=== PATIENT | female | born 1980 | race Two or more races ===

== ENCOUNTER 2017-02-11 12:15 | Emergency (ER) | payer MEDICAID ==
[~2017-02-11] VITALS: Ht 162.6 cm; Wt 56.7 kg
[2017-02-11 12:32] VITALS: BP 137/97
== END 2017-02-11 14:37 | disposition home or self-care (01) ==
LOC: ER 12:15
DX: K64.4 Residual hemorrhoidal skin tags (principal)

== ENCOUNTER 2020-10-20 11:35 | Emergency (ER) | payer SELFPAY ==
[~2020-10-20] VITALS: Ht 162.6 cm; Wt 54.4 kg
[2020-10-20 11:44] VITALS: BP 110/55
[2020-10-20] MEDS ORDERED: IBUPROFEN 100MG/5ML ORAL SUSP 100 MG/5 ML UD PO ONE (13:30)
== END 2020-10-20 14:37 | disposition home or self-care (01) ==
LOC: ER 11:37
DX: S93.401A Sprain of unspecified ligament of right ankle, initial encounter (principal); X50.1XXA Overexertion from prolonged static or awkward postures, initial encounter; Y93.89 Activity, other specified; Y92.89 Other specified places as the place of occurrence of the external cause; Y99.8 Other external cause status
CPT/HCPCS: 73630

== ENCOUNTER 2022-12-18 10:45 | Emergency (ER) | payer MEDICAID ==
[~2022-12-18] VITALS: Ht 162.6 cm; Wt 55.7 kg
[2022-12-18 11:32] VITALS: BP 134/80
[2022-12-18] MEDS: ACETAMINOPHEN 325 MG TAB PO ONE ×2 (12:34→12:37)
== END 2022-12-18 12:44 | disposition home or self-care (01) ==
LOC: ER 10:45
DX: S39.012A Strain of muscle, fascia and tendon of lower back, initial encounter (principal); S16.1XXA Strain of muscle, fascia and tendon at neck level, initial encounter; M51.36 Other intervertebral disc degeneration, lumbar region; X50.1XXA Overexertion from prolonged static or awkward postures, initial encounter; Y93.89 Activity, other specified; Y92.59 Other trade areas as the place of occurrence of the external cause; Y99.8 Other external cause status
CPT/HCPCS: 72100

== ENCOUNTER 2025-04-20 06:07 | Day surgery (SDC) | payer MEDICAID ==
[2025-04-17 14:44] LABS: Hematocrit 37.6 % (36.0-46.0); Hemoglobin 12.5 g/dL (12.2-16.2); Mean Corpuscular Hemoglobin 27.9 pg (28.0-32.0); Mean Corpuscular Volume 83.9 fL (80.0-100.0); Nucleated Red Blood Cells % 0.0 %
[2025-04-17 14:45] LABS: Urine Protein, UAD Negative (Negative)
[2025-04-17 14:58] LABS: INR 1.04 (0.9-1.15); Partial Thromboplastin Time 29.5 SEC (24.5-34.5); Prothrombin Time 11.0 sec (9.3-11.8)
[2025-04-17 15:21] LABS: Alanine Aminotransferase 12 U/L (7-40); Albumin 4.4 g/dL (3.2-4.8); Alkaline Phosphatase 50 U/L (46-116); Anion Gap 9 (5-15); BUN/Creatinine Ratio 15.4 (10.0-20.0); Bilirubin, Total 0.9 mg/dL (0.2-1.0); Blood Urea Nitrogen 12 mg/dL (9-23); Calcium 9.1 mg/dL (8.7-10.4); Carbon Dioxide 28 mmol/L (20-31); Chloride 104 mmol/L (98-107); Glucose 77 mg/dL (74-106); Potassium 3.6 mmol/L (3.5-5.1); Sodium 141 mmol/L (136-145); Total Protein 7.5 g/dL (5.7-8.2)
--- NOTE | 2025-04-17 22:30 | DVHHP ---
ADMIT DATE: 04/20/2025 CHIEF COMPLAINT: Misplaced IUD. HISTORY OF PRESENT ILLNESS: The patient is a 44-year-old 2 para 2-0-0-2 admitted for D and C, hysteroscopy, IUD removal. The patient has an IUD in place in uterus. String was not seen. Ultrasound reveals 9.6 x 6 x 4 cm uterus. IUD is in uterus. The patient was advised regarding removal, possibility of it being embedded, and failure to be able to remove it. All options discussed. The patient . She wishes to proceed with planned procedure. PAST MEDICAL HISTORY: None. PAST SURGICAL HISTORY: None. SOCIAL HISTORY: None. FAMILY HISTORY: None. 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 REVIEW OF SYSTEMS: Consistent with HPI. PHYSICAL EXAMINATION: VITAL SIGNS: Stable, afebrile. HEENT: Within normal limits. CARDIOVASCULAR: Regular rate and rhythm. LUNGS: Clear to auscultation. BREASTS: Symmetrical. No masses. ABDOMEN: Soft, nontender. PELVIC: External genitalia within normal limits. Vagina normal. Cervix grossly normal appearing. Uterus 10-week size. Adnexae nonpalpable. IUD not seen in the cervix. No string seen. EXTREMITIES: No clubbing, cyanosis, edema. IMPRESSION: Misplaced IUD. PLAN: D and C, hysteroscopy. Informed consent obtained. Risks and complications of surgery including infection, bleeding, perforation of uterus, risk of anesthesia, failure to remove the IUD discussed with the patient. Options reviewed. The patient fully understands. She wishes to proceed. We will plan to proceed. DO CHARLOTTE Hawk/ELIAZAR/JT TID: [id number] RECEIPT: [id number]
[~2025-04-20] VITALS: Ht 162.6 cm; Wt 54.4 kg
[2025-04-20] MEDS ORDERED: ceFAZolin 2 GM/D5W50ml 50 ML IV ONE (06:11)
[2025-04-20] MEDS ORDERED: PROPOFOL 10 MG/ML 20 ML IV ONE (06:50)
[2025-04-20] MEDS ORDERED: MEPERIDINE HCL (25 MG/ML) 1ML VIAL ONE (06:50)
[2025-04-20] MEDS ORDERED: ONDANSETRON HCL 4 MG/2 ML VIAL ONE (06:50)
[2025-04-20] MEDS ORDERED: fentaNYL CITRATE 100 MCG/2 ML VL ONE (06:50)
[2025-04-20] MEDS ORDERED: IBUP-1456 PO (07:15)
[2025-04-20] MEDS ORDERED: HYDR-4072 PO (07:15)
[2025-04-20] MEDS ORDERED: ONDANSETRON HCL 4 MG/2 ML VIAL IV PRN ×2 (07:15→08:00)
[2025-04-20] MEDS ORDERED: LACTATED RINGER'S 1,000 ML IV SCH (07:15)
[2025-04-20] MEDS ORDERED: ZOFR4T PO (07:15)
[2025-04-20 07:46] VITALS: PULSE 70; RESP 13; TEMP 97.3; O2SAT 96
[2025-04-20 08:00] VITALS: PULSE 70; RESP 13; O2SAT 96
[2025-04-20] MEDS ORDERED: ACETAMINOPHEN IV 1000 MG/100ML (10MG/ML) IV PRN (08:00)
[2025-04-20] MEDS ORDERED: HYDROmorphone HCL 2 MG/ML VL/or syr IV PRN (08:00)
[2025-04-20] MEDS ORDERED: MEPERIDINE HCL (25 MG/ML) 1ML VIAL IV PRN (08:00)
[2025-04-20] MEDS ORDERED: METOCLOPRAMIDE HCL 5MG/ml INJ 2ml VIAL IV PRN (08:00)
[2025-04-20 08:45] VITALS: BP 111/74; PULSE 64; RESP 14
--- NOTE | 2025-04-20 13:34 | DVHOP2 ---
Operative Report DATE OF OPERATION: 04/20/25 PREOPERATIVE DIAGNOSES: misplaced iud POSTOPERATIVE DIAGNOSES: same SURGEON: Charley Valencia D.O. ANESTHESIOLOGIST: yonas TYPE OF ANESTHESIA : General. CONSENT: The patient was informed of the risks and benefits of the procedure. The patient was informed of the risks and benefits of the procedure. These include but are not limited to , complications of anesthesia, postoperative infection, incomplete relief of symptoms, recurrence of symptoms, damage to blood vessels, nerves and tendons, deep venous thrombosis, pulmonary embolism and possible need for repeat surgery in the future. FINDINGS: ext gent wnl,vag nl,cx nl,uterus 9wks size. Cervix, Bulbous, [place], and urethrovesical glands appeared normal. SPECIMEN-iud COMPLICATIONS: None. BLOOD PRODUCTS USED: None. PROCEDURES: Hysteroscopy and dilatation and curettage.iud removal PROCEDURE IN DETAIL: The patient was taken to the operating room and placed in supine position. General anesthesia was performed without difficulty. She was then placed in Alexx stirrups and prepped and draped in sterile fashion. Examination under anesthesia showed her to have a uterus, slightly enlarged and slightly irregular. Bulbous, [place], and urethrovesical glands appeared normal. A weighted speculum was placed posteriorly and right-angle [place] anteriorly. Cervix was identified and grasped with a sharp tooth tenaculum. Uterus sounded to approximately 9 cm. the hysteroscope was placed within the uteus and iud was located and removed. No bleeding was noted. All instruments were removed. The patient was taken to recovery room in stable condition. CONDITION: stable ESTIMATED BLOOD LOSS: 20 mL Visit Coding OBGYN Date of Service: Apr 20, 2025 Billing Provider: CHARLEY VALENCIA DO DOPER OPERATOR Common Visit Codes: 21107-WLSHUGQ OBS CARE (HIGH) DOPER OPERATOR Procedure Codes: 35142-A&C, DIAG OR THERAPEUTIC CHARLEY VALENCIA DO Apr 20, 2025 13:34
--- NOTE | 2025-04-20 13:38 | POSTOP ---
Post-Operative Note Post-Operative Note Preop Diagnosis misplaced iud Postop Diagnosis: MISPLACED IUD Operation performed d and c,hysteroscopy removal of iud Specimen iud Anesthesia: Mac Anesthesiologist: jefferyygen Blood Loss(fluid mgmt) 20ml Surgeon Theodora Valencia Implant na Complications & Mgmt none Date 04/20/25 Time 13:35 Visit Coding OBGYN Date of Service: Apr 20, 2025 Billing Provider: THEODORA VALENCIA DO BULB WEEDER Common Visit Codes: 16128-KLGQPYV OBS CARE (HIGH) BULB WEEDER Procedure Codes: 07530-M&C, DIAG OR THERAPEUTIC THEODORA VALENCIA DO Apr 20, 2025 13:38
--- NOTE | 2025-04-20 13:39 | DVHDS2 ---
Physician Discharge Progress N Final Diagnosis: MISPLACED IUD Operations or Procedures: Operations or Procedures d and c,hysteroscopy removal of iud Condition on Discharge: Good Disposition: Home Discharge Instructions: Diet: Regular Activity: Light activity Follow Up/Referral: 1WK Medications: RIVERA LOREDO Follow Up Care: Specialist: 1w Discharge Statement: "Patient was advised to return to the ER or call 911 if any headaches, dizziness, shortness of breath, chest pain, abdominal pain, bleeding, fevers, or worsening of medical condition. Patient was counseled about treatment plan, medications, possible side effects, patientverbalized understanding. All questions were answered to the best of my ability. This discharge took greater then 30 minutes in planning, reviewing documentation, counseling the patient, and discussing with other team members." Visit Coding OBGYN Date of Service: Apr 20, 2025 Billing Provider: THEODORA BUTT DO COUNTER SERVER Common Visit Codes: 83950-XDMXVMP OBS CARE (HIGH), 76021-JEZ/OBS DISCH DAY >30MIN COUNTER SERVER Procedure Codes: 75635-X&C, DIAG OR THERAPEUTIC THEODORA BUTT DO Apr 20, 2025 13:39
== END 2025-04-20 09:00 | disposition home or self-care (01) ==
LOC: SUR 06:07
PROVIDERS: ATTEND Obstetrics & Gynecology
DX: T83.32XA Displacement of intrauterine contraceptive device, initial encounter (principal); Y83.8 Other surgical procedures as the cause of abnormal reaction of the patient, or of later complication, without mention of misadventure at the time of the procedure
CPT/HCPCS: 36415; 58562; 80053; 81001; 81025; 84702; 85025; 85610; 85730; 86850; 86900; 86901; 88300; J0690; J1100; J2175; J2405; J2704; J3010